=== PATIENT | male | born 1975 | race Caucasian/White ===

== ENCOUNTER 2016-08-11 06:04 | Emergency (ER) | payer OTHER ==
[~2016-08-11] VITALS: Ht 193 cm; Wt 161.1 kg
[2016-08-11 06:07] VITALS: TEMP 36.9; Ht 193 cm; Wt 161.1 kg
[2016-08-11 06:27] VITALS: O2SAT 97
[2016-08-11] MEDS ORDERED: DIVA500T59 PO ×2 (07:09)
[2016-08-11 07:36] LABS: BASO % 0.1 %; BASO ABS # 0.01 K/uL (0-0.2); COMPLETE YES; EOS % 1.5 %; HEMATOCRIT 42.5 % (42-52); IG% 0.3 %; LYMPH ABS # 2.05 K/uL (1.2-3.4); MEAN CELL VOLUME 86.4 fL (80-100); MEAN CORPUSCULAR HEMOGLOBIN 29.9 pg (25-34); MEAN CORPUSCULAR HGB CONC 34.6 g/dl (32-36); MEAN PLATELET VOLUME 11.2 fL (7.4-10.4); MONO % 10.6 %; NEUT % 65.5 %; PLATELET COUNT 235 K/uL (130-400); RED BLOOD COUNT 4.92 M/uL (4.7-6.1); WHITE BLOOD COUNT 9.32 K/uL (4.8-10.8)
[2016-08-11 07:44] LABS: ALT/SGPT 39 U/L (12-78); AST/SGOT 28 U/L (15-37); BLOOD UREA NITROGEN 18 mg/dl (7-18); BUN/CREATININE RATIO 18.8 (10-20); CALCIUM 9.6 mg/dl (8.5-10.1); CARBON DIOXIDE 24 mmol/L (21-32); CHLORIDE 109 mmol/L (98-107); CREATININE 0.96 mg/dl (0.60-1.40); GLUCOSE 82 mg/dl (70-99); POTASSIUM 3.7 mmol/L (3.5-5.1); SODIUM 141 mmol/L (136-145)
[2016-08-11 07:55] LABS: ALKALINE PHOSPHATASE 80 U/L (45-117); CKMB/CK RATIO 1.4 (0-3.0)
--- NOTE | 2016-08-11 07:58 | DIAGNOSTIC IMAGING REPORT ---
SINGLE VIEW CHEST CLINICAL HISTORY: Cough. Chest pressure. FINDINGS: 2 AP, portable, upright chest radiographs are obtained. No prior studies are available for comparison at the time of dictation. The examination is degraded by portable technique, large body habitus, and patient rotation. The heart is top normal for projection. The mediastinal contour is within normal limits. The lungs and pleural spaces are clear. No pneumothorax is seen. The bony thorax is grossly intact. A left nipple piercing is noted. IMPRESSION: No acute cardiopulmonary abnormality. Electronically signed by: Jarek Bowling M.D. 08/11/2016 7:56 AM Dictated Date/Time: 08/11/2016 7:55 AM
[2016-08-11 09:06] VITALS: BP 121/92; PULSE 80; O2SAT 97
--- NOTE | 2016-08-11 09:53 | EMERGENCY ROOM VISIT NOTE ---
History Report prepared by Crystal: Shanika Birmingham Under the Supervision of: Dr. Nano Montoya D.O. First contact with patient: 06:34 Chief Complaint: SHORTNESS OF BREATH Stated Complaint: SOB History of Present Illness The patient is a 40 year old male who presents to the Emergency Room with complaints of persistent SOB starting last night. He reports feeling SOB all night and being unable to sleep. He would try to relax in bed, but then get up and pace. He describes the SOB as feeling unable to take a full breath. He would try to calm himself down and go back to bed, but would end up getting up to pace again. He reports feeling some anxiety about being SOB. He always has some sleep problems and suspects that he might have sleep apnea. He had some slight chest discomfort like a hand was resting on his chest. He had a sensation of being full even though he had not eaten. He called his brother around 0500 and decided to come to the ED. He reports some nasal congestion, coughing, and sore throat for the past couple of days. He is always slightly congested, but he has been more congested recently. He often gets SOB when exerting himself at work. He has a wound on his legs that has not healed completely over 8-9 months. He also reports swelling in his legs, which he attributes to working on his feet all day. He denies any increased stress, caffeine or alcohol use yesterday. He did drink some soda late in the day. He denies any history of anxiety. He works in a restaurant. He sometimes does get slight chest discomfort during these times. He has a family history of heart disease. His father had an PA in 40s. He has a family history of diabetes. He has a seizure disorder and has Depakote which he does not always take. Source of History: patient Onset: last night Position: other (global) Quality: other (SOB) Timing: other (persistent) Associated Symptoms: + cough, + sorethroat Note: Pt reports chest discomfort, feeling full, nasal congestion, swelling in his legs. Review of Systems See HPI for pertinent positives & negatives. A total of 10 systems reviewed and were otherwise negative. Past Medical & Surgical Medical Problems: (1) Pneumonia (2) Seizure Family History Diabetes mellitus Heart disease Hypertension Seizures Social History Smoking Status: Never Smoker Alcohol Use: occasionally Marital Status: single Housing Status: lives alone Occupation Status: employed Current/Historical Medications Scheduled Divalproex Sodium (Depakote), 1,000 MG PO QAM Divalproex Sodium (Depakote), 1,500 MG PO QPM Allergies Coded Allergies: Penicillins (Verified Allergy, Unknown, FAMILY ALLERGY, 08/11/16) Physical Exam Vital Signs Date Time Temp Pulse Resp B/P Pulse Ox O2 Delivery O2 Flow Rate FiO2 08/11/16 09:06 80 121/92 97 08/11/16 06:40 89 08/11/16 06:27 97 Room Air 08/11/16 06:24 97 Room Air 08/11/16 06:07 36.9 87 18 169/94 97 Room Air Physical Exam General: Obese male. HEENT: Head - normocephalic and atraumatic Pupils are equal, round, and reactive to light. Extraocular eye muscles are intact, and sclera are anicteric. Nose - moist nasal mucosa without discharge. Significant nasal congestion with discussion. Mouth - moist buccal mucosa. Oropharynx is nonerythematous and there is no tonsillar exudate or edema noted. Neck: Supple; no JVD, nuchal rigidity, cervical lymphadenopathy. Heart: Heart sounds distant secondary to body habitus. Regular rate and rhythm. There is a normal S1 and S2 with no murmurs, clicks, or gallops appreciated. Lungs: Clear to auscultation bilaterally with no wheezes, rales, or rhonchi. Abdomen: Soft, completely nontender, nondistended, with good bowel sounds. There are no palpable pulsatile masses or hepatosplenomegaly. There is no guarding, rigidity, or rebound noted. Extremities: No evidence of cyanosis, clubbing, or edema. There are easily palpable peripheral pulses. Non healing wound to the posterior aspect of the distal calf. Skin: warm and dry with good turgor and no rashes. Medical Decision & Procedures ER Provider Diagnostic Interpretation: X-ray results as stated below per interpretation by me and the radiologist: SINGLE VIEW CHEST CLINICAL HISTORY: Cough. Chest pressure. FINDINGS: 2 AP, portable, upright chest radiographs are obtained. No prior studies are available for comparison at the time of dictation. The examination is degraded by portable technique, large body habitus, and patient rotation. The heart is top normal for projection. The mediastinal contour is within normal limits. The lungs and pleural spaces are clear. No pneumothorax is seen. The bony thorax is grossly intact. A left nipple piercing is noted. IMPRESSION: No acute cardiopulmonary abnormality. Electronically signed by: Jarek Bowling M.D. 08/11/2016 7:56 AM Dictated Date/Time: 08/11/2016 7:55 AM Laboratory Results 08/11/16 06:25 Red Blood Count 4.92, Mean Corpuscular Volume 86.4, Mean Corpuscular Hemoglobin 29.9, Mean Corpuscular Hemoglobin Concent 34.6, Mean Platelet Volume 11.2, Neutrophils (%) (Auto) 65.5, Lymphocytes (%) (Auto) 22.0, Monocytes (%) (Auto) 10.6, Eosinophils (%) (Auto) 1.5, Basophils (%) (Auto) 0.1, Neutrophils # (Auto ) 6.10, Lymphocytes # (Auto) 2.05, Monocytes # (Auto) 0.99, Eosinophils # (Auto ) 0.14, Basophils # (Auto) 0.01 08/11/16 06:25 Test 08/11/16 06:25 08/11/16 07:02 White Blood Count 9.32 K/uL (4.8-10.8) Red Blood Count 4.92 M/uL (4.7-6.1) Hemoglobin 14.7 g/dL (14.0-18.0) Hematocrit 42.5 % (42-52) Mean Corpuscular Volume 86.4 fL (80-100) Mean Corpuscular Hemoglobin 29.9 pg (25-34) Mean Corpuscular Hemoglobin Concent 34.6 g/dl (32-36) Platelet Count 235 K/uL (130-400) Mean Platelet Volume 11.2 fL (7.4-10.4) Neutrophils (%) (Auto) 65.5 % Lymphocytes (%) (Auto) 22.0 % Monocytes (%) (Auto) 10.6 % Eosinophils (%) (Auto) 1.5 % Basophils (%) (Auto) 0.1 % Neutrophils # (Auto) 6.10 K/uL (1.4-6.5) Lymphocytes # (Auto) 2.05 K/uL (1.2-3.4) Monocytes # (Auto) 0.99 K/uL (0.11-0.59) Eosinophils # (Auto) 0.14 K/uL (0-0.5) Basophils # (Auto) 0.01 K/uL (0-0.2) RDW Standard Deviation 45.9 fL (36.4-46.3) RDW Coefficient of Variation 14.4 % (11.5-14.5) Immature Granulocyte % (Auto) 0.3 % Immature Granulocyte # (Auto) 0.03 K/uL (0.00-0.02) D-Dimer 220 ug/L FEU (0-500) Anion Gap 8.0 mmol/L (3-11) Est Creatinine Clear Calc Drug Dose 165.2 ml/min Estimated GFR () 112.5 Estimated GFR (Non- 97.1 BUN/Creatinine Ratio 18.8 (10-20) Calcium Level 9.6 mg/dl (8.5-10.1) Total Bilirubin 0.4 mg/dl (0.2-1) Aspartate Amino Transf (AST/SGOT) 28 U/L (15-37) Alanine Aminotransferase (ALT/SGPT) 39 U/L (12-78) Alkaline Phosphatase 80 U/L (45-117) Total Creatine Kinase 435 U/L (39-308) Creatine Kinase MB 6.0 ng/ml (0.5-3.6) Creatine Kinase MB Ratio 1.4 (0-3.0) Troponin I < 0.015 ng/ml (0-0.045) Pro-B-Type Natriuretic Peptide 71 pg/ml (0-450) Total Protein 7.8 gm/dl (6.4-8.2) Albumin 3.9 gm/dl (3.4-5.0) Globulin 3.9 gm/dl (2.5-4.0) Albumin/Globulin Ratio 1.0 (0.9-2) Thyroid Stimulating Hormone (TSH) 3.270 uIu/ml (0.300-4.500) Bedside Glucose 84 mg/dl (70-99) Laboratory results per my review. ECG Indication: SOB/dyspnea Rate (beats per minute): 87 Rhythm: normal sinus Findings: no acute ischemic change, no ectopy ED Course 0645: The patient was evaluated in room A12B. A complete history and physical examination were performed. Nursing notes ad previous electronic medical records were reviewed. IV lock was established and labs were drawn as above. A twelve-lead EKG was obtained. The patient had chest x-ray as described above. 0820: Upon reevaluation, the patient is feeling well. I discussed findings and results with him. I will call his PCP to discuss his results. He verbalized agreement of the treatment plan. He was discharged home. 0833: I discussed the patient's case with JASON Naik. She will see him in the weekend clinic or on Sunday. Medical Decision The patient is a 40 year old male who presents to the ED with SOB. Differential diagnosis includes heart disease, hypercholesterolemia, diabetes, anxiety, pneumonia, bronchitis, PE. Lab results show: no leukocytosis, stable H&H, normal renal function, BSG 84, LFTs normal, TSH normal, total CK 435, CKMB 6.0, D-dimer 220. Patient admits that he was up pacing all night long because he was concerned about the shortness of breath that he was experiencing as well as the sensation that there was a hand on the left side of his chest. Laboratory workup was unremarkable. EKG and cardiac enzymes were negative. I discussed the case with the patient's PCP. She will see him in follow-up for additional testing with regards to the sensation in the chest as well as probable sleep apnea. The patient was instructed to return to the ER immediately. Any worsening symptoms. Consults Time Called: [phone] Consulting Physician: JASON Naik Returned Call: [phone] I discussed the patient's case with her. She will see him in the weekend clinic or on Sunday. Impression Primary Impression: Shortness of breath Additional Impressions: Chest heaviness Anxiety Scribe Attestation The scribe's documentation has been prepared under my direction and personally reviewed by me in its entirety. I confirm that the note above accurately reflects all work, treatment, procedures, and medical decision making performed by me. Departure Information Dispostion Home / Self-Care Referrals Ralph Zavala M.D. (PCP) Ursula Cool M.D. (MEDICAL) Forms HOME CARE DOCUMENTATION FORM, IMPORTANT VISIT INFORMATION Patient Instructions My [facility] Additional Instructions Resturn to the ER if symptoms worsen. Follow up for stress test, cholesterol testing and HgbA1c Problem Qualifiers
== END 2016-08-11 09:11 | disposition home or self-care (01) ==
LOC: C.EDB 06:05 → C.EDA 09:11
DX: R06.02 Shortness of breath (principal); R07.9 Chest pain, unspecified; F41.9 Anxiety disorder, unspecified; G40.909 Epilepsy, unspecified, not intractable, without status epilepticus; Z79.899 Other long term (current) drug therapy; Z88.0 Allergy status to penicillin; Z83.3 Family history of diabetes mellitus; Z82.49 Family history of ischemic heart disease and other diseases of the circulatory system; Z82.0 Family history of epilepsy and other diseases of the nervous system